=== PATIENT | male | born 1985 | race Caucasian/White ===

== ENCOUNTER 2016-11-09 19:41 | Emergency (ER) | payer OTHER ==
[~2016-11-09] VITALS: Ht 182.9 cm; Wt 90.7 kg
[~2016-11-09 19:41] MED LIST: LIORESAL 10MG T10 MG PO; MOTRIN 600 MG600 MG PO; OXYCODONE HYDRO10 M1 PO; PERCOCET 325 MG1 TA2 PO
[2016-11-09 19:45] VITALS: BP 149/89
--- NOTE | 2016-11-09 20:03 | ED UPPER/LOWER EXTREMITY COMPL ---
History of Present Illness General Chief Complaint: Shoulder Injury Stated Complaint: RIGHT SHOULDER PAIN Source: patient, old records Exam Limitations: no limitations Vital Signs & Intake/Output Vital Signs & Intake/Output Vital Signs Date Time Temp Pulse Resp B/P B/P Pulse O2 O2 Flow FiO2 Mean Ox Delivery Rate 11/09 1944 97.6 67 20 149/89 97 Room Air ED Intake and Output 11/10 0000 11/09 1200 Intake Total Output Total Balance Patient 200 lb Weight Weight Reported by Patient Measurement Method Allergies Coded Allergies: codeine (Intermediate, STOMACH ACHE 11/09/16) erythromycin base (Intermediate, STOMACH ACHE 11/09/16) Reconcile Medications Baclofen (Lioresal) 10 MG TAB 1-2 TAB PO TIDPRN PRN muscle strain Cyclobenzaprine HCl 5 MG TABLET 1 TAB PO TIDPRN PRN pain Ibuprofen 800 MG TABLET 1 TAB PO TID PRN pain Ibuprofen (Motrin 600 MG Tab) 600 MG TAB 1 TAB PO Q6P PRN PAIN OXYCODONE HCL/ACETAMINOPHEN (Percocet 5-325 MG Tablet) 325 MG/5 MG TAB 1-2 TAB PO Q4-6 PRN PRN severe pain Triage Note: TRIAGE: PT TO ER C/C R SHOULDER PAIN, WOKE UP WITH SAME THIS MORNING. CONSTANT SINCE ONSET. NO KNOWN INJURY BUT STATES HAS BEEN MOVING A LITTLE AT A TIME SINCE 10/12. STATES PAIN IS SHARP, DULL AND SPASMING AT TIMES. ALSO AT TIMES RADIATES INTO BACK, AXILLARY AREA AND R ARM. UNCHANGED WITH MOVEMENT, HAS GOOD RANGE OF MOTION. TRIED IBUPROFEN 400 MG WITH NO RELIEF NOTED. REFUSES OFFERED PAIN MEDS AT TRIAGE. Triage Nurses Notes Reviewed? yes Onset: Abrupt Duration: day(s): (1), constant Timing: recent history Severity: moderate Severity Numbers: 5 Pain/Injury Location: Right: Shoulder. Method of Injury: unknown Modifying Factors: Improves With: rest. Worsens With: movement. Associated Symptoms: none HPI: 31-year-old male presents complaining of right shoulder pain since this morning radiating into his armpit and down at this arm. He denies any numbness or tingling no known injury or trauma however states he has been doing a lot of lifting this month. He denies neck or back pain chest pain shortness of breath. No numbness or tingling. Denies any swelling to his arm rashes to his arm. He is not taken anything for his symptoms he is right-hand dominant. No modifying factors or associated symptoms otherwise. The pain feels improved with lying back on it (PRINCE BARNETT) Past History Travel History Traveled to [place] past 21 day No Medical History Any Pertinent Medical History? see below for history Neurological: NONE EENT: NONE Cardiovascular: PVC's Respiratory: NONE Gastrointestinal: NONE Hepatic: NONE Renal: NONE Musculoskeletal: disk herniation Psychiatric: NONE Endocrine: NONE Blood Disorders: NONE Cancer(s): NONE VIRTUALIZATION ARCHITECT/Reproductive: NONE Surgical History Surgical History: L5 discectomy Psychosocial History What is your primary language Lithuanian Tobacco Use: Never used ETOH Use: occasional use Illicit Drug Use: MEDICAL [employer] CARD Family History Hx Contributory? No (PRINCE BARNETT) Review of Systems Review of Systems Constitutional: Reports: see HPI. All Other Systems: Reviewed and Negative Comments Review of systems: See HPI, All other systems negative. Constitutional, no chills no fever, no malaise HEENT: No visual changes no sore throat no congestion Cardiovascular: No chest pain , no palpitation Skin: no rashes, no change in skin Respiratory: No dyspnea no cough no sputum GI: No nausea no vomiting, no diarrhea, no bloating/constipation Muscle skeletal: joint pain, no back pain, no neck pain, Neurologic: no headache Psych: No stress no depression,. Heme/endocrine: No bruising Immunology: No lymphadenopathy (PRINCE BARNETT) Physical Exam Physical Exam General Appearance: well developed/nourished, no apparent distress, alert, awake Comments: Well-developed well-nourished patient in no apparent distress. HEENT: Atraumatic, extraocular motion intact Neck: Supple, FROM Back: FROM Cardiovascular: Regular rate and rhythms no murmurs rubs or gallops, Respiratory: Chest nontender.There were no bony deformities, no asymmetry. No respiratory distress. Patient speaking in full complete sentences. Breath sounds clear to auscultation bilaterally: NO W/R/R Shoulder: Atraumatic/Stable. FROM . Elbow: Atraumatic/stable. FROM. No laxity Upper arm/Forearm: Atraumatic. Nontender. 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 Skin intact. FROM Pulses: Normal/equal radial pulses bilaterally. Brisk cap refill lower Extremities: full range of motion Neuro: awake, alert, and oriented to person, place and time. There were no obvious focal neurologic abnormalities. Skin: Warm & dry;No appreciable rash on exposed skin Psych: Mood affect normal, normal memory normal judgment. (PRINCE BARNETT) Progress Differential Diagnosis: compartment syndrome, contusion, dislocation, fracture, gout, sprain, tendon injury Plan of Care: Orders Procedure Date/time Status Durable Medical Equipment 11/09 2026 Active X-ray ordered from triage I discussed with the patient at length all of their results. sling provided I had an extensive conversation regarding need for close follow up with their primary care physician this week as well as return precautions. I answered all of their questions, they feel comfortable with the plan and follow-up care. (PRINCE BARNETT) Diagnostic Imaging: Viewed by Me: Radiology Read. Discussed w/RAD: Radiology Read. Radiology Impression: PATIENT: MILA AVALOS PRESENT AGE: 31 PATIENT ACCOUNT NO: [id number] : 84 LOCATION: [facility] ORDERING PHYSICIAN: PRINCE MARTE SERVICE DATE: 11/09/16 EXAM TYPE: RAD - XRY-SHOULDER COMPLETE-RIGHT EXAMINATION: XR SHOULDER, RIGHT CLINICAL INFORMATION: Pain. Evaluate for a fracture. COMPARISON: No relevant prior studies are available for comparison. TECHNIQUE: AP internal rotation, Grashey, scapular Y, and axillary views of the right shoulder were obtained. FINDINGS: No fracture or dislocation. No joint space narrowing. No marginal osteophytes. No osseous erosion. No abnormal soft tissue calcification. IMPRESSION: Normal radiographic examination of the right shoulder. DICTATED BY: ORLANDO GARG MD DATE/TIME DICTATED:11/09/162019 DATABASE ADMIN:ALANA DATE/TIME TRANSCRIBED:11/09/162019 CONFIDENTIAL, DO NOT COPY WITHOUT APPROPRIATE AUTHORIZATION. <Electronically signed in Other Vendor System> SIGNED BY: ORLANDO GARG MD 11/09/162026 (PRINCE BARNETT) Departure Departure Time of Disposition: 2026 Disposition: HOME OR SELF CARE Condition: Stable Clinical Impression Primary Impression: Right shoulder tendonitis Referrals: PATIENT HAS NO PRIMARY CARE DR (PCP/Family) Additional Instructions: Rest ice sling as discussed ibuprofen as directed Flexeril as discussed this may make you drowsy follow-up with your primary care physician this week return with any concerns these were sent to [facility] Departure Forms: Customer Survey General Discharge Information Prescriptions: Current Visit Scripts Cyclobenzaprine HCl 1 TAB PO TIDPRN PRN pain #15 TAB Ibuprofen 1 TAB PO TID PRN pain #30 TAB (PRINCE BARNETT) PA/TRIAL ATTORNEY Co-Sign Statement Statement: ED Attending supervision documentation- [] I saw and evaluated the patient. I have also reviewed all the pertinent lab results and diagnostic results. I agree with the findings and the plan of care as documented in the PA's/TRIAL ATTORNEY's documentation. [x] I have reviewed the ED Record and agree with the PA's/TRIAL ATTORNEY's documentation. [] Additions or exceptions (if any) to the PAs/TRIAL ATTORNEY's note and plan are summarized below: [] (MARC TRAN,SHIRLEY Marks)
--- NOTE | 2016-11-09 20:27 | RADIOLOGY REPORT ---
EXAMINATION: XR SHOULDER, RIGHT CLINICAL INFORMATION: Pain. Evaluate for a fracture. COMPARISON: No relevant prior studies are available for comparison. TECHNIQUE: AP internal rotation, Grashey, scapular Y, and axillary views of the right shoulder were obtained. FINDINGS: No fracture or dislocation. No joint space narrowing. No marginal osteophytes. No osseous erosion. No abnormal soft tissue calcification. IMPRESSION: Normal radiographic examination of the right shoulder.
[2016-11-09] MEDS ORDERED: CYCLOBENZAPRINE5 M2 PO (20:28)
[2016-11-09] MEDS ORDERED: IBUPROFEN800 M1 PO (20:28)
== END 2016-11-09 20:35 ==
LOC: ERH 19:41
DX: M75.91 Shoulder lesion, unspecified, right shoulder (principal)
CPT/HCPCS: 73030-RT